=== PATIENT | female | born 1970 | race Caucasian/White ===

== ENCOUNTER 2018-03-20 23:12 | Emergency (ER) | payer MEDICAID ==
[~2018-03-20] VITALS: Ht 162.6 cm; Wt 99.3 kg
[2018-03-20 23:49] VITALS: Ht 162.6 cm; Wt 99.3 kg
[2018-03-21 06:15] VITALS: BP 138/77
== END 2018-03-21 06:15 | disposition home or self-care (01) ==
LOC: ED 23:12
DX: L02.415 Cutaneous abscess of right lower limb (principal); I10 Essential (primary) hypertension; E11.9 Type 2 diabetes mellitus without complications; E78.00 Pure hypercholesterolemia, unspecified

== ENCOUNTER 2018-03-23 13:04 | Emergency (ER) | payer MEDICAID ==
[~2018-03-23] VITALS: Ht 162.6 cm; Wt 110.7 kg
[2018-03-23 13:18] VITALS: Ht 162.6 cm; Wt 110.7 kg
[2018-03-23 16:00] VITALS: BP 146/74
== END 2018-03-23 16:00 | disposition home or self-care (01) ==
LOC: ED 13:04
DX: Z48.01 Encounter for change or removal of surgical wound dressing (principal); E11.8 Type 2 diabetes mellitus with unspecified complications; I10 Essential (primary) hypertension; E78.00 Pure hypercholesterolemia, unspecified; E66.01 Morbid (severe) obesity due to excess calories; Z90.49 Acquired absence of other specified parts of digestive tract

== ENCOUNTER 2019-03-24 22:14 | Inpatient (IN) | payer MEDICAID ==
[~2019-03-24] VITALS: Ht 165.1 cm; Wt 98.0 kg
[2019-03-24 22:23] VITALS: Ht 165.1 cm; Wt 98.0 kg
--- NOTE | 2019-03-24 22:23 | NUR ---
PT PRESENTS TO THE ER TODAY FOR LEFT SIDE FACIAL DROOP. PT STATES SYMPTOMS BEGAN YESTERDAY MORNING 03/23/19 WHEN SHE WOKE UP AND HAS PROGRESSIVLY GOTTEN WORSE OVER TIME. PT SMILE IS UNEQUAL, PT IS UNABLE TO CLOSE LEFT EYE COMPLETLY, AND UNABLE TO RAISE LEFT EYEBROW. 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 PT UNABLE TO FEEL TOUCH TO HER LEFT ARM. PT COMPLAINS OF LOSS OF PERIPHERAL VISON IN HER LEFT EYE. PT HAS SLURRED SPEACH. PT IS A&O X 4. PT IS ABLE TO ANSWER ALL QUESTIONS APPROPRIATELY. PT DENIES ANY HEADACHE. PT DOES COMPLAIN OF 4/10 PAIN IN HER LEFT ARM. PT'S NIH STROKE SCALE IS AN 8. VITAL SIGNS STABLE. RESPIRATIONS EVEN AND UNLABORED. DR. OROZCO AT [facility].
[2019-03-24 23:15] LABS: BASOPHIL % 0.2 % (0-2); PLATELET COUNT 292 x10^3mcL (130-400); RED CELL DISTRIBUTION WIDTH 13.9 % (11.5-14.5)
--- NOTE | 2019-03-24 23:28 | NUR ---
MEDICATED PER MD ORDERS- WILL CONTINUE TO MONITOR.
[2019-03-24 23:33] LABS: CALCIUM 9.7 mg/dL (8.5-10.1); CARBON DIOXIDE 24.3 mmol/L (21-32); CHLORIDE SERUM 100 mmol/L (98-107); CREATININE SERUM 0.9 mg/dL (0.6-1.0); GFR1 > 60 mL/min; GLUCOSE SERUM 314 mg/dL (74-106); POTASSIUM SERUM 4.4 mmol/L (3.5-5.1); SODIUM SERUM 138 mmol/L (136-145)
[2019-03-24 23:37] LABS: ALBUMIN 3.6 g/dL (3.4-5.0); ALKALINE PHOSPHATASE 87 U/L (46-116); ALT/SGPT 38 U/L (14-59); AST/SGOT 25 U/L (15-37); BILIRUBIN TOTAL 0.17 mg/dL (0.20-1.00); TOTAL PROTEIN, SERUM 6.8 g/dL (6.4-8.2)
--- NOTE | 2019-03-25 00:29 | NUR ---
PATIENT LYING ON ZARIA BENEDICT PRESENT DOING ASSESSMENT. WILL CONTINUE TO MONITOR.
[2019-03-25] MEDS ORDERED: METFORMIN HCL1000 MG PO (01:03)
[2019-03-25] MEDS ORDERED: LISINOPRIL2.5 MG PO (01:04)
[2019-03-25] MEDS ORDERED: LANTUS SOLOS100 U/M1 SQ (01:04)
[2019-03-25] MEDS ORDERED: SIMVASTATIN20 M1 PO (01:06)
--- NOTE | 2019-03-25 01:11 | NUR ---
ATTEMPTED TO PROVIDE REPORT TO KIRSTEN FERNANDEZ. WAS ADVISED "YOU DON'T HAVE TO GIVE ME REPORT, JUST SEND PATIENT UP".
[2019-03-25 01:50] VITALS: BP 150/68
[2019-03-25 02:04] LABS: MAGNESIUM 1.6 mg/dL (1.8-2.4); PHOSPHOROUS 3.4 mg/dL (2.5-4.9)
--- NOTE | 2019-03-25 02:06 | NUR ---
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
[2019-03-25 02:12] LABS: UA SPECIFIC GRAVITY <=1.005 (1.005-1.035); microscopic required? YES; urine erythrocyte TRACE (NEGATIVE)
[2019-03-25 02:12] LABS: T3 TOTAL 1.42 ng/mL
[2019-03-25 02:13] LABS: CHOLESTEROL/HDL RATIO 5.6
[2019-03-25 02:27] LABS: FREE T4 1.06 ng/dL (0.76-1.46); FREE THYROXINE INDEX 3.3 ug/dL (1.4-4.5)
[2019-03-25 02:31] LABS: AMPHETAMINE QUAL UR NONE DETECTED (See below)
[2019-03-25 05:38] LABS: BASOPHIL % 0.2 % (0-2); PLATELET COUNT 257 x10^3mcL (130-400); RED CELL DISTRIBUTION WIDTH 14.1 % (11.5-14.5)
[2019-03-25 05:45] LABS: CALCIUM 8.7 mg/dL (8.5-10.1); CARBON DIOXIDE 25.5 mmol/L (21-32); CHLORIDE SERUM 105 mmol/L (98-107); CREATININE SERUM 0.6 mg/dL (0.6-1.0); GFR1 > 60 mL/min; GLUCOSE SERUM 220 mg/dL (74-106); MAGNESIUM 1.6 mg/dL (1.8-2.4); POTASSIUM SERUM 4.5 mmol/L (3.5-5.1); SODIUM SERUM 141 mmol/L (136-145)
--- NOTE | 2019-03-25 05:52 | NUR ---
PT ASLEEP BUT EASILY AROUSABLE, MORNING BLODD SUGAR-220 MG/DL WITH RISS 6 UNITS, NUERO CHECK DONE, NO CHANGES WITH INITIAL ASSESSMENT, IVF INFUSING WELL, NO DISTRESS NOTED, WILL KEEP TO MONITOR.
--- NOTE | 2019-03-25 06:02 | NUR ---
DR ALBERTS MADE AWARE OF PT'S LA:3.3.
[2019-03-25 06:11] VITALS: BP 137/66
--- NOTE | 2019-03-25 07:10 | NUR ---
PT RESTING BUT AROUSABLE. AAOX4. SPEECH SLIGHTLY SLURRED BUT COMPREHENSIBLE. 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 SLIGHTLY LIMITED SENSATION IN HER LEFT SIDE. ABLE TO MOVE ALL FINGERS, MOVE HAND, AND MOVE LEGS/TOES. PERRL. EENT FREE OF DISCHARGE. ON ROOM AIR. RESPS ARE E/U. SYMMETRICAL CHEST WALL MOVEMENT NOTED. NO ADVENTITIOUS LUNG SOUNDS HEARD. ABD IS ROUND, SYMM, SOFT. PIV TO LAC INTACT, PORT PATENT, DRESSING CDI.
--- NOTE | 2019-03-25 07:20 | NUR ---
BEDSIDE HANDOFF REPORT GIVEN TO SEAN, ALL QUESTIONS ANSWERED AND CONCERNS ADDRESSED.
--- NOTE | 2019-03-25 10:30 | NUR ---
ECHOCARDIOGRAM PENDING-NURSE WITH PATIENT
[2019-03-25 10:42] VITALS: BP 137/72
--- NOTE | 2019-03-25 11:00 | NUR ---
MULTIPLE ATTEMPTS TO TRY AND ACCESS AN 18 OR 20 G IV AND UNSUCCESSFUL. JAE FROM IMAGING MADE AWARE. WILL ATTEMPT TO TRY AGAIN LATER.
--- NOTE | 2019-03-25 11:32 | NUR ---
PT NPO FOR MULTIPLE IMAGING STUDIES DONE. PT'S BS OF 197 AND DID NOT COVER DUE TO IMAGING STUDIES.
--- NOTE | 2019-03-25 12:11 | NUR ---
PT WAS SEEN FOR DYSPHAGIA. PT WAS ABL ETO SAFELY SWALLOW PUREE DIET WITH THIN LIQUID WITHOUT S/S OF ASPIRATION. PTHAD DIFFICULTY WITH MASTICATION SKILLS AND DELAY INS WALLOW FOR MS DIET. RECOMMENDATIOM PUREE DIET WITH THIN LIQUID SMALL BITE SNA DSIPS ONLY.
--- NOTE | 2019-03-25 12:54 | NUR ---
Discount pharmacy card and list to low cost medical clinics given to patient by Abdirashid Chi.
--- NOTE | 2019-03-25 13:50 | NUR ---
ECCHO COMPLETED AT BEDSIDE.
--- NOTE | 2019-03-25 14:00 | NUR ---
CT ANGIO NECK COMPLETED AT THIS TIME.
--- NOTE | 2019-03-25 14:09 | NUR ---
ATTEMPTED TO INSERT IV BY ENRIQUE RN. PIV SUCCESSFULLY INSERTED TO 20 G TO L FA, FLUSHED WELL, INTACT, DRESSING CDI. NO S/S OF INFILTRATION.
--- NOTE | 2019-03-25 14:19 | NUR ---
CT CALLED AT THIS TIME FOR PT TO BE PICKED UP FOR CT ANGIO OF BRAIN.
--- NOTE | 2019-03-25 14:30 | NUR ---
CT CALLED AND SAID FOR PT TO BE PICKED UP IN 30 DUE TO A CASE STILL BEING REVIEWED.
--- NOTE | 2019-03-25 15:20 | NUR ---
CALLED CT BACK TO CHECK ON WHAT TIME THEY WOULD BE PICKING UP PT, AND THEY SAID THAT THEY WERE CLEANING THE STATION AND WILL SALESPERSON [place] AND GLASSWARE THE PT IN ABOUT 30-45 MIN.
[2019-03-25 17:24] VITALS: BP 142/84
--- NOTE | 2019-03-25 17:38 | NUR ---
PT RESTING IN BED. RESP EQUAL AND UNLABORED, NO DISTRESS REPORTED. WILL CONTINUE TO MONITOR
--- NOTE | 2019-03-25 19:06 | NUR ---
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
[2019-03-25 21:02] VITALS: BP 139/76
--- NOTE | 2019-03-26 05:10 | NUR ---
PT ASLEEP BUT EASILY AROUSABLE, NEURO STAUS NO CHANGE WITH INITIAL SHIFT ASSESSMENT, SLEPT MOST OF NIGHT, TOLERATED WELL WITH PUREE DIET, MORNING BLOOD SUGAR-153 MG/DL WITH RISS 3 UNITS, SL TO LAC AND LFA, NO DISTRESS NOTED, WILL KEEP TO MONITOR.
[2019-03-26 06:02] VITALS: BP 137/65
[2019-03-26 06:24] LABS: BASOPHIL % 0.2 % (0-2); CALCIUM 9.2 mg/dL (8.5-10.1); CARBON DIOXIDE 28.4 mmol/L (21-32); CHLORIDE SERUM 103 mmol/L (98-107); CREATININE SERUM 0.6 mg/dL (0.6-1.0); GFR1 > 60 mL/min; GLUCOSE SERUM 178 mg/dL (74-106); MAGNESIUM 1.7 mg/dL (1.8-2.4); PHOSPHOROUS 4.5 mg/dL (2.5-4.9); PLATELET COUNT 270 x10^3mcL (130-400); POTASSIUM SERUM 4.4 mmol/L (3.5-5.1); RED CELL DISTRIBUTION WIDTH 14.3 % (11.5-14.5); SODIUM SERUM 143 mmol/L (136-145)
--- NOTE | 2019-03-26 07:05 | NUR ---
RECIEVED PT RESTING IN BED WITH NO C/O PAIN, DISTRESS, OR SOB. A/O X4, NO ARNDT OR DIZZINESS. TELE #27 CONNECTED TO PT. SALINE LOCKS TO LFA AND LAC, BOTH INTACT AND PATENT WITH NO REDNESS. SAFETY PRECAUTIONS IN PLACE, CALL LIGHT WITHIN REACH, WILL MONITOR.
[2019-03-26 09:20] VITALS: BP 126/63
--- NOTE | 2019-03-26 10:00 | NUR ---
PT RESTING AT THIS TIME, REPORTS NO PAIN, DISTRESS OR SOB. SAFETY PRECAUTIONS IN PLACE, CALL LIGHT WITHIN REACH, WILL CONT TO MONITOR.
[2019-03-26 12:31] VITALS: BP 136/61
--- NOTE | 2019-03-26 12:50 | NUR ---
PT STILL REPORTS NO PAIN OR DISTRESS, WILL MONITOR.
--- NOTE | 2019-03-26 15:00 | NUR ---
PT RESTING IN BED COMFORTABLY. DENIES ANY PAIN, DISTRESS, OR SOB, WILL MONITOR. CALL LIGHT WITHIN REACH.
--- NOTE | 2019-03-26 15:47 | NUR ---
PHYSICAL THERAPY DAILY NOTES CO-SIGN All documentation done by the Breakdown Mill Operator for 03/26/19 has been reviewed. I agree with the documentation. Reviewed/Co-Signed by: Yanni Limon PT Documentation Done by:EVER BYRD PTA
[2019-03-26 17:35] VITALS: BP 141/66
--- NOTE | 2019-03-26 18:02 | NUR ---
PT STABLE AT THIS TIME WITH NO C/O PAIN, DISTRESS, OR SOB. TELE #27 CONNECTED TO PT. DENIES CP OR PRESSURE. TOLERATED ALL CARES WELL. VS WNL. BOTH IV SITES INTACT AND PATENT WITH NO REDNESS OR INFLAMMATION. SAFETY PRECAUTIONS IN PLACE, CALL LIGHT WITHIN REACH, WILL ENDORSE CARE TO NIGHT NURSE.
--- NOTE | 2019-03-26 19:00 | NUR ---
RECEIVED PT FROM DAY SHIFT RN. PT IS ALERT AND ORIENTED TO PERSON PLACE TIME AND SITUATION. PT FOLLOWS ALL COMMANDS. PRIMARILY CHADIAN SPEAKING BUT UNDERSTANDS MINIMAL UKRAINIAN. THERE IS LEFT SIDED WEAKNESS NOTED. PT STATES SHE FEELS MINOR PRESSURE IN HER LEFT EYE BUT HAS BEEN TOLERABLE. NO SLURRED SPEECH NOTED. PT DENIES CHEST PAIN OR SHORTNESS OF BREATH ON ROOM AIR. BREATHING IS EVEN AND UNLABORED. TELE #[address]. PT IS AMBULATORY BUT ENCOURAGED PT TO USE CALL LIGHT WHEN ATTEMPTING TO AMBULATE IN ORDER TO REDUCE THE RISK OF FALLS. THERE IS LFA AND LAC IV THAT IS CLEAN DRY AND INTACT/SALINE LOCKED AT THIS TIME. SAFETY MEASURES ARE IN PLACE. BED IS IN THE LOWEST POSITION. CALL IGHT IS WITH REACH. WILL CONTINUE TO MONITOR PT.
[2019-03-26 21:37] VITALS: BP 148/72
--- NOTE | 2019-03-26 22:41 | NUR ---
INTRUCTED OT TO AVOID CONSUMING OUTSIDE FOOD. PT CURRENTLY RESTIGN IN BED. NO DISTRESS NOTED
--- NOTE | 2019-03-27 03:12 | NUR ---
PT SLEEPING IN BED WITH EYES CLOSED. BREATHING IS EVEN AND UNLABORED. NO DISTRESS NOTED AT THIS TIME.
--- NOTE | 2019-03-27 05:05 | NUR ---
PT SLEPT THROUGHOUT THE NIGHT. NO COMPLAINTS OF CHEST PAIN OR SHORTNESS OF BREATH, NO DISTRESS NOTED AT THIS TIME. NO SIGNIFICANT CHANGES NOTED.
[2019-03-27 05:34] VITALS: BP 143/49
[2019-03-27 06:28] LABS: BASOPHIL % 0.3 % (0-2); PLATELET COUNT 275 x10^3mcL (130-400); RED CELL DISTRIBUTION WIDTH 13.9 % (11.5-14.5)
[2019-03-27 06:44] LABS: CALCIUM 8.9 mg/dL (8.5-10.1); CARBON DIOXIDE 24.7 mmol/L (21-32); CHLORIDE SERUM 103 mmol/L (98-107); CREATININE SERUM 0.6 mg/dL (0.6-1.0); GFR1 > 60 mL/min; GLUCOSE SERUM 223 mg/dL (74-106); MAGNESIUM 1.5 mg/dL (1.8-2.4); PHOSPHOROUS 4.7 mg/dL (2.5-4.9); POTASSIUM SERUM 3.8 mmol/L (3.5-5.1); SODIUM SERUM 140 mmol/L (136-145)
[2019-03-27] MEDS ORDERED: ASP325 PO (06:55)
[2019-03-27] MEDS ORDERED: ATORVASTATIN CA40 M1 PO (06:55)
--- NOTE | 2019-03-27 07:15 | NUR ---
RECEIVED PT. IN BED A/A/O X3. NO SOB, NO N/V NOTED. PT. DENIES ANY PAIN AT THIS TIME. IV SITE #1 NOTED TO Abner FA. IV SITE #2 NOTED TO Abner AC. SCD TO BLE MAINTAINED. BED IN LOW POS., CALL LIGHT WITHIN REACH. SIDE RAILS UP X3.
[2019-03-27 09:40] VITALS: BP 152/78
[2019-03-27 12:44] VITALS: BP 147/82
--- NOTE | 2019-03-27 14:14 | NUR ---
CALLED AND INFORMED Bryant VARGAS THAT MRI OF BRAIN WILL NOT BE DONE UNTIL TOMORROW 03/28/19 AROUND 3 PM PER EDGE MOLDER. NO FURTHER ORDER RECEIVED AT THIS TIME.
--- NOTE | 2019-03-27 16:20 | NUR ---
PHYSICAL THERAPY DAILY NOTES CO-SIGN All documentation done by the Manufacturing Technologist for 03/27/19 has been reviewed. I agree with the documentation. Reviewed/Co-Signed by: Yanni Limon PT Documentation Done by:EVER BYRD PTA
[2019-03-27 16:48] VITALS: BP 116/59
--- NOTE | 2019-03-27 18:25 | NUR ---
TELE. NEURO CONSULT. INITIATED. SPOKE TO JOEL FROM TELE. NEURO CONSULT. SERVICE. JOEL EXPLAINED THAT THE PHYSICIAN WILL CONTACT THE PT. IN THE PT.'S ROOM VIA CAMERA. TELE NEURO CONSULT. CAMERA PLACED IN PT.'S ROOM.
--- NOTE | 2019-03-27 19:06 | NUR ---
REPORT GIVEN TO KIRSTEN GAYLE. ALL QUESTIONS AND CONCERNS ADDRESSED.
--- NOTE | 2019-03-27 20:16 | NUR ---
TELE NEURO DOCTOR ABLE TO PERFORM TEST AND INTERVIEW PATIENT WITH ME AT BEDSIDE WITH HELP OF NEIL TO INTERPRETE,MAINLY [place]ER.SHE ANSWERED ALL TH QUESTION,GIVEN DR ALBERTS NO,[phone]/WILL DISCUSS RECOMMENDATION WITH HER.CHARGE NURSE MADE AWARESHENG.
--- NOTE | 2019-03-27 20:24 | NUR ---
SHIFT REASEESMENT DONE.PATIENT ALERT AND ORIENTED.MAINLY [place].NEEDS ANTICIPATED.TEARY L EYE.BREATHING EASY.HEPLOCK LAC.TELE 27 SR.L FACIAL DROOP.L ARM NUMBNESS.FAMILY VISITING,SUPPORTIVE OF CARE.CALL LIGHT IN REACH.
[2019-03-27 20:35] VITALS: BP 139/68
--- NOTE | 2019-03-27 21:07 | NUR ---
REPORT OF CONSULT RECEIVED,SHOWED TO CHARGE NURSESHENG.WILL FILE IN CHART.
--- NOTE | 2019-03-27 21:10 | NUR ---
FAMILY STILL VISITING,VERY SUPPORTIVE OF CARE.BLOOD SUGAR TONIGHT 229,GIVEN RISS 6 UNITS.
--- NOTE | 2019-03-27 23:29 | NUR ---
QUIET ENVIRONMENT PROVIDED.CALL LIGHT IN REACH.L FACIAL DROOP,L ARM NUMBNESS.CALL LIGHT IN REACH.
--- NOTE | 2019-03-28 00:56 | NUR ---
MRI BRAIN AT 1500.
--- NOTE | 2019-03-28 04:08 | NUR ---
CHECKED AT INTERVALS,SLEEPING COMORTABLY.CALL LIGHT IN REACH.
[2019-03-28 05:10] VITALS: BP 124/54
[2019-03-28 06:35] LABS: BASOPHIL % 0.1 % (0-2); PLATELET COUNT 269 x10^3mcL (130-400); RED CELL DISTRIBUTION WIDTH 13.5 % (11.5-14.5)
[2019-03-28 06:57] LABS: CALCIUM 9.4 mg/dL (8.5-10.1); CARBON DIOXIDE 28.1 mmol/L (21-32); CHLORIDE SERUM 101 mmol/L (98-107); CREATININE SERUM 0.6 mg/dL (0.6-1.0); GFR1 > 60 mL/min; GLUCOSE SERUM 208 mg/dL (74-106); MAGNESIUM 1.6 mg/dL (1.8-2.4); PHOSPHOROUS 4.5 mg/dL (2.5-4.9); POTASSIUM SERUM 4.2 mmol/L (3.5-5.1); SODIUM SERUM 140 mmol/L (136-145)
--- NOTE | 2019-03-28 06:58 | NUR ---
PATIENT RESTING,NO MAJOR CHANGES,L FACIAL NUMBNESS STILL ON GOING PROBLEM.WILL ENDORSE
--- NOTE | 2019-03-28 07:20 | NUR ---
RECEIVED PT FROM GATE GUARD RN. PT SITTING UP AT BEDSIDE. A/OX4. TELE#27. DENIES CHEST PAIN/PRESSURE. NOTED LEFT SIDE FACIAL DROOP. PT C/O ARNDT TO LEFT SIDE 12/27. PT STATES "I DO NOT WANT MEDICATION." PT ABLE TO FOLLOW COMMANDS. PT C/O NUMBNESS TO LEFT SIDE, STRENGTH EQUAL TO BOTH SIDES. PT DNEIES ANY PAIN AT THIS TIME. RESPIRATIONS EQUAL AND UNLABORED ON RA. DENIES SOB. IV TO LAC SALINE LOCKED. NO REDNESS OR SWELLING NOTED. WILL CONTINUE TO MONITOR. CALL LIGHT IN REACH. BED IN LOWET POSITION.
[2019-03-28 08:49] VITALS: BP 136/70
--- NOTE | 2019-03-28 09:43 | NUR ---
PT IN BED RESTING. NO ACUTE RESP DISTRESS NOTED ON RA. PT STATES ARNDT HAS IMPROVED BUT PT IS TRYING TO REST. GIVEN PO MEDS. TOLERATED WELL. IV FLUSHED WELL TO LAC. NO REDNESS OR SWELLING NOTED. IV MAGNESIUM INFUSING ORDERED. FAMILY AT BEDSIDE. WILL CONTINUE TO MONITOR. CALL LIGHT IN REACH. BED IN LOWEST POSITION.
--- NOTE | 2019-03-28 09:55 | NUR ---
PHYSICAL THERAPY NOTE PATIENT IS IND ON BED MOBILITY, TRANSFER AND GAIT. GOAL MET. D/C FROM PHYSICAL THERAPY AND END TO NSG FOR ADL AND MOBILITY NEEDS
[2019-03-28] MEDS ORDERED: ASPIR LOW81 MG PO (10:07)
[2019-03-28] MEDS ORDERED: ASPIRIN EC325 M1 PO (10:13)
--- NOTE | 2019-03-28 12:04 | NUR ---
PT IN BED RESTING. NO ACUTE RESP DISTRESS NOTED ON RA. PT DENIES ANY PAIN AT THIS TIME. LEFT SIDED FACIAL DROOP NOTED. PT STATES NUMBNESS TO LEFT SIDE IS STILL THE SAME. IV MAGNESIUM COMPLETE. IV SALINE LOCKED. NO REDNESS OR SWELLING NOTED. BLOOD SUGAR CHECKED WAS 246. GIVEN 6 UNITS OF REGULAR INSULIN PER SLIDING SCALE TO ABDOMEN. WILL CONTINUE TO MONITOR. CALL LIGHT IN REACH. BED IN LOWEST POSITION.
[2019-03-28 13:11] VITALS: BP 127/54
[2019-03-28 13:17] VITALS: BP 127/54
--- NOTE | 2019-03-28 16:20 | NUR ---
PT SITING UP IN BED. BLOOD SUGAR CHECKED WAS 301. SPOKE WITH CLINICAL DATA PROGRAMMER PER TECH HE WILL BE PICKING UP PT IN NEXT 15 MINUTES FOR MRI. WILL HOLD OFF ON GIVING INSULIN PER SLIDING SCALE UNTIL PT RETURNS BACK FROM MRI. PT VERBALIZED UNDERSTANDING. WILL CONTINUE TO MONITOR. CALL LIGHT IN REACH. BED IN LOWEST POSITION.
--- NOTE | 2019-03-28 16:32 | NUR ---
PT TAKEN OFF FLOOR VIA WHEELCHAIR FOR MRI. [facility] NOTIFIED.
[2019-03-28 17:39] VITALS: BP 143/76
--- NOTE | 2019-03-28 19:05 | NUR ---
SPOKE WITH DR. ALBERTS REGARDING NO MRI RESULTS. PER DR. ALBERTS KEEP PT UNTIL MRI RESULT IS AVAILABLE.
[2019-03-28 19:30] VITALS: BP 135/61
--- NOTE | 2019-03-28 19:30 | NUR ---
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
--- NOTE | 2019-03-28 22:55 | NUR ---
CALLED DAUGHTER AND MADE AWARE MRI RESULT CAME IN UNREMARKABLE.CHARGE NURSE SPOKE WITH DR. BARGER AND MADE AWARE OF RESULT AND OK TO DISCHARGE PT TONIGHT.DAUGHTER WILL COME AND P/U PT.
--- NOTE | 2019-03-28 23:41 | NUR ---
PT DISCHARGE HOME VIA WHEELCHAIR WITH DAUGHTER.DISCHARGE INSTRUCTIONS AND PRESCRIPTION GIVEN.D/C TELE AND IV TO LAC WITH NEEDLE INTACT.NO BLEEDING NOTED.IN NO DISTRESS.
== END 2019-03-28 23:35 | disposition home or self-care (01) | DRG 45 ==
LOC: ED 22:14 → DU 23:56
PROVIDERS: Emergency Medicine; Internal Medicine; ADMIT Internal Medicine
DX: I63.9 Cerebral infarction, unspecified (principal); E11.00 Type 2 diabetes mellitus with hyperosmolarity without nonketotic hyperglycemic-hyperosmolar coma (NKHHC); E11.65 Type 2 diabetes mellitus with hyperglycemia; E83.42 Hypomagnesemia; G83.24 Monoplegia of upper limb affecting left nondominant side; R29.810 Facial weakness; I10 Essential (primary) hypertension; E78.5 Hyperlipidemia, unspecified; Z79.4 Long term (current) use of insulin; Z68.38 Body mass index [BMI] 38.0-38.9, adult; Z79.84 Long term (current) use of oral hypoglycemic drugs
CPT/HCPCS: 82962; 83880; 84439; 92526-GN; 92610-GN; 97116-GP; 97530-GP; G0378; J1815; J1885; J3475; J7030; Q0092; Q9967

== ENCOUNTER 2019-04-01 13:06 | Emergency (ER) | payer MEDICAID ==
[~2019-04-01] VITALS: Ht 165.1 cm; Wt 81.6 kg
[~2019-04-01 13:06] MED LIST: ASP325 PO; ASPIR LOW81 MG PO; ASPIRIN EC325 M1 PO; ATORVASTATIN CA40 M1 PO; LANTUS SOLOS100 U/M1 SQ; LISINOPRIL2.5 MG PO; METFORMIN HCL1000 MG PO; SIMVASTATIN20 M1 PO
[2019-04-01 13:10] VITALS: Ht 165.1 cm; Wt 81.6 kg
[2019-04-01 13:55] LABS: microscopic required? YES; urine erythrocyte 1+ (NEGATIVE)
[2019-04-01 13:56] LABS: BASOPHIL % 0.1 % (0-2); PLATELET COUNT 334 x10^3mcL (130-400); RED CELL DISTRIBUTION WIDTH 13.4 % (11.5-14.5)
[2019-04-01 14:06] LABS: CALCIUM 10.2 mg/dL (8.5-10.1); CHLORIDE SERUM 100 mmol/L (98-107); CREATININE SERUM 0.6 mg/dL (0.6-1.0); GFR1 > 60 mL/min; GLUCOSE SERUM 222 mg/dL (74-106); POTASSIUM SERUM 4.1 mmol/L (3.5-5.1); SODIUM SERUM 141 mmol/L (136-145)
[2019-04-01 14:10] LABS: ALBUMIN 3.8 g/dL (3.4-5.0); ALT/SGPT 36 U/L (14-59); AST/SGOT 24 U/L (15-37)
[2019-04-01 14:30] LABS: ALKALINE PHOSPHATASE 89 U/L (46-116); BILIRUBIN TOTAL 0.3 mg/dL (0.20-1.00); TOTAL PROTEIN, SERUM 7.9 g/dL (6.4-8.2)
[2019-04-01 16:18] VITALS: BP 146/83
== END 2019-04-01 16:18 | disposition home or self-care (01) ==
LOC: ED 13:06
PROVIDERS: Emergency Medicine
DX: E11.65 Type 2 diabetes mellitus with hyperglycemia (principal); G51.0 Bell's palsy; I10 Essential (primary) hypertension; E78.00 Pure hypercholesterolemia, unspecified; Z90.49 Acquired absence of other specified parts of digestive tract; Z86.73 Personal history of transient ischemic attack (TIA), and cerebral infarction without residual deficits
CPT/HCPCS: 36600; 82962; J7030